=== PATIENT | female | born 1940 | race Caucasian/White ===

== ENCOUNTER 2017-10-16 10:52 | Day surgery (SDC) | payer MEDICARE, OTHER ==
[2017-10-08 15:44] LABS: BASOPHILS % (AUTO) 0.3 % (0-1); EOSINOPHILS # (AUTO) 0.1 X10'3 (0-0.9); EOSINOPHILS % (AUTO) 0.9 % (0-6); LYMPHOCYTES % (AUTO) 24.6 % (21-51); MEAN CORPUSCULAR HEMOGLOBIN 34.4 PG (27.0-31.0); MEAN CORPUSCULAR HGB CONC 35.4 % (33.0-36.5); MEAN CORPUSCULAR VOLUME 97.1 FL (78-98); MONOCYTES # (AUTO) 0.9 X10'3 (0-0.9); MONOCYTES % (AUTO) 11.2 % (2-12); PRE OP HEMOGLOBIN 14.5 g/dL (12.0-16.0); PRE OP PLATELET COUNT 308 X10'3 (140-440); RED BLOOD COUNT 4.23 X10'6 (4.20-5.60); RED CELL DISTRIBUTION WIDTH 14.4 % (11.5-14.5)
[2017-10-08 16:08] LABS: ALBUMIN 3.7 G/DL (3.4-5.0); ALKALINE PHOSPHATASE 96 IU/L (46-116); BLOOD UREA NITROGEN 12 MG/DL (7-18); BUN/CREATININE RATIO 11.8 (6.6-38.0); CALCIUM 9.1 MG/DL (8.5-10.1); CHLORIDE 95 MMOL/L (99-107); CREATININE 1.02 MG/DL (0.40-0.90); PRE OP ALT 50 U/L (30-65); PRE OP ANION GAP 5 (8-16); PRE OP AST 38 U/L (10-37); PRE OP BILIRUB, TOTAL 0.4 MG/DL (0.0-1.0); PRE OP GLUCOSE 119 MG/DL (70-104); PRE OP POTASSIUM 4.2 MMOL/L (3.4-5.1); TOTAL PROTEIN 7.5 G/DL (6.4-8.2); eGFR 53 ML/MIN
[2017-10-08 16:12] LABS: PRE OP SODIUM 128 MMOL/L (135-145)
[2017-10-16] VITALS (8 sets, daily range): BP systolic 151–172; BP diastolic 81–97
[~2017-10-16] VITALS: Ht 165.1 cm; Wt 71.7 kg
[~2017-10-16 10:52] MED LIST: CALC1TAB5 PO; LEVO50TA8 PO; LOSA50TA3 PO
[2017-10-16] MEDS ORDERED: VANCOMYCIN INJ 1000 MG in NORMAL SALINE 250ml IV.SOLN IV ONE (11:12)
[2017-10-16] MEDS ORDERED: Cefazolin 2GM/50ML dext iso,osmotic IVPB IV ONE (11:12)
[2017-10-16] MEDS ORDERED: famotidine 20mg tablet PO ONE (11:12)
[2017-10-16] MEDS ORDERED: ringers solution, lacted 1,000 ML IV SCH ×2 (11:13→11:56)
[2017-10-16] MEDS ORDERED: fentaNYL/PF 50MCG/1 ML 2ML syringe ONE ×2 (11:49)
[2017-10-16] MEDS ORDERED: LIDOcaine 2% (20mg/ml) 5ml vial ONE (11:49)
[2017-10-16] MEDS ORDERED: dexamethasone sod phosphate 4mg/ml inj. ONE (11:49)
[2017-10-16] MEDS ORDERED: propofol inj 20 ML IV ONE (11:49)
[2017-10-16] MEDS ORDERED: midazolam 2 mg/2 ml injection ONE (11:49)
[2017-10-16] MEDS ORDERED: ondansetron/PF 4mg/2ml inj ONE (11:50)
[2017-10-16] MEDS ORDERED: sevoflurane 250ml liquid IH ONE (11:50)
[2017-10-16 12:00] LABS: ISTAT CREATININE 0.7 mg/dL (0.6-1.1); ISTAT IONIZED CALCIUM 1.19 mmol/L (1.03-1.32); ISTAT K 4.3 mmol/L (3.5-5.1); POC BUN/CREATININE RATIO 12.9 (6.6-38.0)
[2017-10-16] MEDS ORDERED: ondansetron/PF 4mg/2ml inj IV PRN (12:00)
[2017-10-16] MEDS ORDERED: hydrALAZINE 20mg/ml inj. IV PRN (12:00)
[2017-10-16] MEDS ORDERED: labetalol 20mg/4ml (5mg/ml) syringe IV PRN (12:00)
[2017-10-16] MEDS ORDERED: fentaNYL/PF 50MCG/1 ML 2ML syringe IV PRN ×2 (12:00)
[2017-10-16] MEDS ORDERED: morphine 4 MG/ML inj SYRINge IV PRN ×2 (12:00)
[2017-10-16] MEDS ORDERED: meperidine/PF 50mg/ml syringe ONE (15:18)
== END 2017-10-16 16:28 | disposition home or self-care (01) ==
LOC: PAS 10:52
PROVIDERS: ATTEND Orthopaedic Surgery
DX: M21.611 Bunion of right foot (principal); M21.612 Bunion of left foot; M20.21 Hallux rigidus, right foot; M20.22 Hallux rigidus, left foot; I10 Essential (primary) hypertension; E66.9 Obesity, unspecified; E03.9 Hypothyroidism, unspecified; E78.5 Hyperlipidemia, unspecified; Z79.891 Long term (current) use of opiate analgesic; Z79.899 Other long term (current) drug therapy; Z98.890 Other specified postprocedural states; Z68.26 Body mass index [BMI] 26.0-26.9, adult
CPT/HCPCS: 28295; 36415; 80047; 84443; 85025; 93005; A6222; A6449; C1713; J0690; J1100; J2001; J2175; J2250; J2405; J2704; J3010; J3370; J7120; L3260; 80053; A7000